=== PATIENT | male | born 1950 | race Caucasian/White ===

== ENCOUNTER 2017-03-23 11:19 | Emergency (ER) | payer MEDICARE, OTHER ==
[~2017-03-23] VITALS: Ht 175.3 cm; Wt 83.0 kg
[2017-03-23 11:26] VITALS: BP 130/74; PULSE 76; RESP 17; TEMP 97.7; O2SAT 98
[2017-03-23] MEDS ORDERED: SINE25TA PO (11:27)
--- NOTE | 2017-03-23 11:38 | PD ---
HPI Chief Complaint: Psychiatric Symptoms Time Seen by Provider: 11:30 Travel History International Travel<30 days: No Contact w/Intl Traveler<30days: No Traveled to known affect area: No History of Present Illness HPI This patient is brought in for psychiatric evaluation under police Isbell act. He is a residential patient that became combative today. He was confused and swinging at other patients and argue with staff. Patient admits to getting aggravated with people. He is very confused. He doesn't know where he is and seems confused to the situation. He denies headache or head injury or fever. Symptoms moderately severe. Duration is unknown. No alleviating factors. No known Exacerbating factors. He denies psychiatric illness PFSH Past Medical History Cardiovascular Problems: Yes Social History Alcohol Use: No Tobacco Use: No Substance Use: No Allergies-Medications (Allergen,Severity, Reaction): Coded Allergies: vancomycin (Verified Allergy, Unknown, HIVES, 03/23/17) Reported Meds & Prescriptions Reported Meds & Active Scripts Active Reported Duoneb (Ipratropium-Albuterol Neb) 0.5-2.5 Mg/3 Ml Neb 3 Ml INH Q6HR NEB Diphenhydramine HCl 25 Mg Tablet 12.5 Mg PO Q8HR PRN Flomax (Tamsulosin HCl) 0.4 Mg Cap 0.4 Mg PO BID Prednisone 20 Mg Tab 20 Mg PO BID Lasix (Furosemide) 40 Mg Tab 40 Mg PO BID Pepcid (Famotidine) 20 Mg Tab 20 Mg PO BID Vitamin D3 (Cholecalciferol) 1,000 Unit Tab 1,000 Units PO DAILY Klonopin (Clonazepam) 0.5 Mg Tab 0.5 Mg PO Q12HR PRN Fluoxetine (Fluoxetine HCl) 20 Mg Capsule 20 Mg PO DAILY Stalevo 75 (Ukyhkvjlq-[id number]) 18.75-75-200 Mg Tab 1 Tab PO Q8HR Review of Systems General / Constitutional: No: Fever Eyes: No: Visual changes HENT: No: Headaches Cardiovascular: No: Chest Pain or Discomfort Respiratory: No: Shortness of Breath Gastrointestinal: No: Abdominal Pain Genitourinary: No: Dysuria Musculoskeletal: No: Pain Skin: No Rash Neurologic: Positive: Change in Mentation, No: Weakness Psychiatric: Positive: Disorder of Thought, No: Depression Endocrine: No: Polydipsia Hematologic/Lymphatic: No: Easy Bruising Physical Exam Narrative GENERAL: Well-nourished, well-developed patient in no apparent distress. SKIN: Focused skin assessment reveals no rash and nodules. Skin is Warm and dry. HEAD: Atraumatic. Normocephalic. EYES: Pupils equal and round. No scleral icterus. No injection or drainage. ENT: No nasal bleeding or discharge. Mucous membranes pink and moist. NECK: Trachea midline. No JVD. CARDIOVASCULAR: Regular rate and rhythm. No murmur appreciated. RESPIRATORY: No accessory muscle use. Clear to auscultation. Breath sounds equal bilaterally. GASTROINTESTINAL: Abdomen soft, non-tender, nondistended. Hepatic and splenic margins not palpable. MUSCULOSKELETAL: No obvious deformities. No clubbing. No cyanosis. No edema. NEUROLOGICAL: Awake and alert. No obvious cranial nerve deficits. Motor grossly within normal limits. Normal speech. Patient is oriented to person and month and year but doesn't know the day of the week or where he is. PSYCHIATRIC: Appropriate mood and affect; insight and judgment poor Data Data Last Documented VS Vital Signs Date Time Temp Pulse Resp B/P (MAP) Pulse Ox O2 Delivery O2 Flow Rate FiO2 03/23/17 11:26 76 17 03/23/17 11:26 97.7 130/74 (92) 98 Orders Orders Complete Blood Count With Diff (03/23/17 11:30) Basic Metabolic Panel (Bmp) (03/23/17 11:30) Alcohol (Ethanol) (03/23/17 11:30) Drug Screen, Random Urine (03/23/17 11:30) Psych Screen (03/23/17 11:30) Glucose, Random (03/23/17 11:30) Urinalysis - C+S If Indicated (03/23/17 11:34) Thyroid Stimulating Hormone (03/23/17 11:38) Cath For Specimen (03/23/17 12:36) Labs Laboratory Tests Test 03/23/17 11:40 03/23/17 12:35 White Blood Count 17.8 TH/MM3 Red Blood Count 4.10 MIL/MM3 Hemoglobin 11.9 GM/DL Hematocrit 34.4 % Mean Corpuscular Volume 83.9 FL Mean Corpuscular Hemoglobin 29.0 PG Mean Corpuscular Hemoglobin Concent 34.6 % Red Cell Distribution Width 22.0 % Platelet Count 339 TH/MM3 Mean Platelet Volume 8.1 FL Neutrophils (%) (Auto) 86.3 % Lymphocytes (%) (Auto) 7.3 % Monocytes (%) (Auto) 5.1 % Eosinophils (%) (Auto) 0.8 % Basophils (%) (Auto) 0.5 % Neutrophils # (Auto) 15.3 TH/MM3 Lymphocytes # (Auto) 1.3 TH/MM3 Monocytes # (Auto) 0.9 TH/MM3 Eosinophils # (Auto) 0.2 TH/MM3 Basophils # (Auto) 0.1 TH/MM3 CBC Comment DIFF FINAL Differential Comment Blood Urea Nitrogen 34 MG/DL Creatinine 1.28 MG/DL Random Glucose 97 MG/DL Calcium Level 8.8 MG/DL Sodium Level 134 MEQ/L Potassium Level 4.0 MEQ/L Chloride Level 99 MEQ/L Carbon Dioxide Level 29.5 MEQ/L Anion Gap 6 MEQ/L Estimat Glomerular Filtration Rate 56 ML/MIN Thyroid Stimulating Hormone 3rd Gen 1.170 uIU/ML Ethyl Alcohol Level LESS THAN 3 MG/DL Urine Color YELLOW Urine Turbidity CLEAR Urine pH 7.0 Urine Specific [place] 1.011 Urine Protein NEG mg/dL Urine Glucose (UA) NEG mg/dL Urine Ketones NEG mg/dL Urine Occult Blood NEG Urine Nitrite NEG Urine Bilirubin NEG Urine Urobilinogen LESS THAN 2.0 MG/DL Urine Leukocyte Esterase NEG Urine RBC LESS THAN 1 /hpf Urine WBC 1 /hpf Microscopic Urinalysis Comment CULT NOT INDICATED Urine Opiates Screen NEG Urine Barbiturates Screen NEG Urine Amphetamines Screen NEG Urine Benzodiazepines Screen NEG Urine Cocaine Screen NEG Urine Cannabinoids Screen NEG MDM Medical Decision Making Medical Screen Exam Complete: Yes Emergency Medical Condition: Yes Medical Record Reviewed: Yes Differential Diagnosis Dementia, dementia with psychotic features, intracranial hemorrhage, electrolyte abnormality Narrative Course I have reviewed the patient's electronic medical record. I reviewed the Isbell act form filled out by police captain. Patient is never been here before I've ordered a medical workup to include IV placed CBC shows some nonspecific leukocytosis Metabolic profile shows minimal azotemia Accu-Chek 119 Urinalysis is clean Drug screen is negative Alcohol is negative TSH is normal His has shown up and I obtain further information. He has history of Parkinson's and is often confused. He's had multiple recent brain imaging as he was recently in the hospital, last 2 weeks ago She does not feel he needs further brain imaging and I agree and have canceled brain Ct He has no headache or head injury or neurologic focal complaint At this point he is alert and polite and pleasant and cooperative He is awaiting psychiatric evaluation He is is medically stable as can be made He has some leukocytosis but does not look septic or toxic. He has no respiratory symptoms. He has no tachycardia nor hypotension or fever. Likely he will be discharged back to the residential but will get psychiatric evaluation first Florentin Harrell MD Mar 23, 2017 11:37
[2017-03-23 12:11] LABS: AUTOMATED NEUTROPHIL # 15.3 TH/MM3 (1.8-7.7); BASOPHIL # 0.1 TH/MM3 (0-0.2); BASOPHIL % 0.5 % (0.0-2.0); EOSINOPHIL # 0.2 TH/MM3 (0-0.4); EOSINOPHIL % 0.8 % (0.0-4.0); HEMATOCRIT 34.4 % (39.0-51.0); HEMO FLAGS DIFF FINAL; LYMPH % 7.3 % (9.0-44.0); LYMPHOCYTE # 1.3 TH/MM3 (1.0-4.8); MEAN CELL VOLUME 83.9 FL (80.0-100.0); MEAN CORPUSCULAR HGB CONC 34.6 % (32.0-36.0); MONO % 5.1 % (0.0-8.0); NEUT % 86.3 % (16.0-70.0); PLATELET COUNT 339 TH/MM3 (150-450); WHITE BLOOD COUNT 17.8 TH/MM3 (4.0-11.0)
[2017-03-23 12:21] LABS: ANION GAP 6 MEQ/L (5-15); BICARBONATE 29.5 MEQ/L (21.0-32.0); BLOOD UREA NITROGEN 34 MG/DL (7-18); CHLORIDE 99 MEQ/L (98-107); GLOMERULAR FILTRATION RATE 56 ML/MIN (>89); SODIUM (NA) 134 MEQ/L (136-145)
[2017-03-23 12:27] LABS: ALCOHOL LESS THAN 3 MG/DL (0-5)
[2017-03-23] MEDS ORDERED: FLUO20CA12 PO (12:54)
[2017-03-23] MEDS ORDERED: DIPH25TA5 PO (12:54)
[2017-03-23] MEDS ORDERED: FURO1TAB60 PO (12:54)
[2017-03-23] MEDS ORDERED: PRED20 PO (12:54)
[2017-03-23] MEDS ORDERED: STALTAB5 PO (12:54)
[2017-03-23] MEDS ORDERED: FAMO1TAB37 PO (12:54)
[2017-03-23] MEDS ORDERED: CLON.5 PO (12:54)
[2017-03-23] MEDS ORDERED: TAMS5CAP PO (12:54)
[2017-03-23] MEDS ORDERED: VITA100064 PO (12:54)
[2017-03-23] MEDS ORDERED: IPRASOL INH (12:54)
[2017-03-23 12:58] LABS: BLOOD, URINE NEG (NEG); COMMENT (UR) CULT NOT INDICATED; CULTURE IF INDICATED CULT NOT INDICATED; GLUCOSE,URINE NEG (NEG); KETONE, URINE NEG (NEG); NITRITE,URINE NEG (NEG); URINE COLOR YELLOW (YELLW/STRAW)
[2017-03-23 14:50] VITALS: BP 124/76; TEMP 97.9
[2017-03-23] MEDS ORDERED: clonazePAM 0.5 MG TAB PO PRN (18:00)
[2017-03-23] MEDS ORDERED: FUROSEMIDE 40 MG TAB PO SCH (18:00)
--- NOTE | 2017-03-23 18:04 | PD ---
Data Data Last Documented VS Vital Signs Date Time Temp Pulse Resp B/P (MAP) Pulse Ox O2 Delivery O2 Flow Rate FiO2 03/23/17 18:14 97.5 96 18 122/68 (86) 99 Room Air Orders Orders Complete Blood Count With Diff (03/23/17 11:30) Basic Metabolic Panel (Bmp) (03/23/17 11:30) Alcohol (Ethanol) (03/23/17 11:30) Drug Screen, Random Urine (03/23/17 11:30) Psych Screen (03/23/17 11:30) Glucose, Random (03/23/17 11:30) Urinalysis - C+S If Indicated (03/23/17 11:34) Thyroid Stimulating Hormone (03/23/17 11:38) Cath For Specimen (03/23/17 12:36) Diet Regular Basic (03/23/17 Dinner) Clonazepam (Klonopin) (03/23/17 18:00) Furosemide (Lasix) (03/23/17 18:00) Tamsulosin (Flomax) (03/23/17 21:00) Carbidopa-Levodopa 25-100 Mg (Sinemet 25 (03/23/17 22:00) Labs Laboratory Tests Test 03/23/17 11:40 03/23/17 12:35 White Blood Count 17.8 TH/MM3 Red Blood Count 4.10 MIL/MM3 Hemoglobin 11.9 GM/DL Hematocrit 34.4 % Mean Corpuscular Volume 83.9 FL Mean Corpuscular Hemoglobin 29.0 PG Mean Corpuscular Hemoglobin Concent 34.6 % Red Cell Distribution Width 22.0 % Platelet Count 339 TH/MM3 Mean Platelet Volume 8.1 FL Neutrophils (%) (Auto) 86.3 % Lymphocytes (%) (Auto) 7.3 % Monocytes (%) (Auto) 5.1 % Eosinophils (%) (Auto) 0.8 % Basophils (%) (Auto) 0.5 % Neutrophils # (Auto) 15.3 TH/MM3 Lymphocytes # (Auto) 1.3 TH/MM3 Monocytes # (Auto) 0.9 TH/MM3 Eosinophils # (Auto) 0.2 TH/MM3 Basophils # (Auto) 0.1 TH/MM3 CBC Comment DIFF FINAL Differential Comment Blood Urea Nitrogen 34 MG/DL Creatinine 1.28 MG/DL Random Glucose 97 MG/DL Calcium Level 8.8 MG/DL Sodium Level 134 MEQ/L Potassium Level 4.0 MEQ/L Chloride Level 99 MEQ/L Carbon Dioxide Level 29.5 MEQ/L Anion Gap 6 MEQ/L Estimat Glomerular Filtration Rate 56 ML/MIN Thyroid Stimulating Hormone 3rd Gen 1.170 uIU/ML Ethyl Alcohol Level LESS THAN 3 MG/DL Urine Color YELLOW Urine Turbidity CLEAR Urine pH 7.0 Urine Specific [place] 1.011 Urine Protein NEG mg/dL Urine Glucose (UA) NEG mg/dL Urine Ketones NEG mg/dL Urine Occult Blood NEG Urine Nitrite NEG Urine Bilirubin NEG Urine Urobilinogen LESS THAN 2.0 MG/DL Urine Leukocyte Esterase NEG Urine RBC LESS THAN 1 /hpf Urine WBC 1 /hpf Microscopic Urinalysis Comment CULT NOT INDICATED Urine Opiates Screen NEG Urine Barbiturates Screen NEG Urine Amphetamines Screen NEG Urine Benzodiazepines Screen NEG Urine Cocaine Screen NEG Urine Cannabinoids Screen NEG MDM Supervised Visit with RICKI: No Narrative Course I was asked by the psychiatric nurse to order the patient's home medications. The patient is on Stalevo for Parkinson's disease. I called our pharmacist and we do not have this on formulary. The patient will be provided his carbidopa/ levodopa. Brian Falcon MD Mar 23, 2017 18:04
[2017-03-23 18:14] VITALS: BP 122/68; PULSE 76; PULSE 96; RESP 18; TEMP 97.5; O2SAT 99
--- NOTE | 2017-03-23 19:32 | PD ---
History of Present Illness Chief Complaint: Psychiatric Symptoms Time Seen by Provider: 18:15 Travel History International Travel<30 Days: No Contact w/Intl Traveler<30days: No Known affected area: No Legal Status Legal Status: Isbell Act Isbell Act Signed By: Stephane Barrios Isbell Act Comment: Signed by [facility] Officer Hi Calloway #[id number]. History of Present Illness: History of Present Illness HPI This patient is a 67 year old male with no previous psychiatric history and history of Parkinson's disease who is brought in for psychiatric evaluation under police Isbell act. The Isbell act reads "Possible Dementia, post M.I. Threatening to smash glass doors; Hitting other patients; Though he was in a time share presentation while at alf." Patient admits to getting aggravated with people. Patient has been monitored here and has not been agitated. No previous encounter with [facility] psychiatry. Patient is alert and oriented to person, partial to time, knows it is March 2017, aware he is in the hospital. He admits that he is frustrated at times. He does not present any suicidal or homicidal ideation at this time. Currently not experiencing any delusions or hallucinations. He does state that he now knows he has hallucinations but that it is very difficult because t" they seem so real". PFSH Past Medical History Cardiac Catheterization: Yes Cardiovascular Problems: Yes Diminished Hearing: No Neurologic: Yes Parkinson's Disease: Yes Myocardial Infarction: Yes Tetanus Vaccination: < 5 Years Influenza Vaccination: Yes Psychiatric History Psychiatric History Hx Psychiatric Treatment: He denies any routine psychiatric treatment. History of Inpatient Treatment: No Guns or firearms in home: No Social History male, retired ic engineer. Recently placed in nursing facility. Hx Alcohol Use: No Hx Tobacco Use: No Hx Substance Use: No (Pt denies. ) Hx of Substance Use Treatment: No Allergies-Medications (Allergen,Severity, Reaction): Coded Allergies: vancomycin (Verified Allergy, Unknown, HIVES, 03/23/17) Reported Meds & Prescriptions Reported Meds & Active Scripts Active Reported Duoneb (Ipratropium-Albuterol Neb) 0.5-2.5 Mg/3 Ml Neb 3 Ml INH Q6HR NEB Diphenhydramine HCl 25 Mg Tablet 12.5 Mg PO Q8HR PRN Flomax (Tamsulosin HCl) 0.4 Mg Cap 0.4 Mg PO BID Prednisone 20 Mg Tab 20 Mg PO BID Lasix (Furosemide) 40 Mg Tab 40 Mg PO BID Pepcid (Famotidine) 20 Mg Tab 20 Mg PO BID Vitamin D3 (Cholecalciferol) 1,000 Unit Tab 1,000 Units PO DAILY Klonopin (Clonazepam) 0.5 Mg Tab 0.5 Mg PO Q12HR PRN Fluoxetine (Fluoxetine HCl) 20 Mg Capsule 20 Mg PO DAILY Stalevo 75 (Wnufoqbxm-Guzrjnsr-Ijjlpeuwir) 18.75-75-200 Mg Tab 1 Tab PO Q8HR Review of Systems Constitutional: COMPLAINS OF: Change in appetite Neurologic: COMPLAINS OF: Abnormal gait Psychiatric: COMPLAINS OF: Depression Mental Status Examination Appearance: Appropriate (In hospital gown) Consciousness: Alert Orientation: Person, Place, Date/Time (partial) Speech: Unremarkable Language: Adequate Fund of Knowledge: Adequate Attention and Concentration: Adequate Mood: Sad Affect: Appropriate Thought Process & Associations: Intact, Logical, Goal directed Thought Content: Appropriate Hallucination Type: Visual Delusion Type: None Suicidal Ideation: No Suicidal Plan: No Suicidal Intention: No Homicidal Ideation: No Homicidal Plan: No Homicidal Intention: No Insight: Adequate Judgment: Adequate MDM Medical Decision Making Medical Record Reviewed: Yes Assessment/Plan This patient is a 67 year old male with no previous psychiatric history and history of Parkinson's disease who is brought in for psychiatric evaluation under police Isbell act. He is a alf patient that became combative today. He was confused and swinging at other patients and arguing with staff. Patient admits to getting aggravated with people. Patient exhibits hallucinations and delusions associated with Parkinson's disease which unfortunately are common. His recent use of of anti-PD medications also tends to increase the risk of psychosis. He may benefit from low dose of Zyprexa but this is deferred to treatment provider at his SNF. The patient has been working with a neuro psychiatrist in adjusting his current medications. Patient does not meet Isbell act criteria. No evidence of unstable mental illness as defined under the Isbell act. Lift Isbell act. Patient to return to SNF. Orders Orders Complete Blood Count With Diff (03/23/17 11:30) Basic Metabolic Panel (Bmp) (03/23/17 11:30) Alcohol (Ethanol) (03/23/17 11:30) Drug Screen, Random Urine (03/23/17 11:30) Psych Screen (03/23/17 11:30) Glucose, Random (03/23/17 11:30) Urinalysis - C+S If Indicated (03/23/17 11:34) Thyroid Stimulating Hormone (03/23/17 11:38) Cath For Specimen (03/23/17 12:36) Diet Regular Basic (03/23/17 Dinner) Clonazepam (Klonopin) (03/23/17 18:00) Furosemide (Lasix) (03/23/17 18:00) Tamsulosin (Flomax) (03/23/17 21:00) Carbidopa-Levodopa 25-100 Mg (Sinemet 25 (03/23/17 22:00) Results Vital Signs Date Time Temp Pulse Resp B/P (MAP) Pulse Ox O2 Delivery O2 Flow Rate FiO2 03/23/17 18:14 97.5 76 18 122/68 (86) 99 Room Air 03/23/17 14:50 97.9 78 16 124/76 (92) 99 03/23/17 11:26 76 17 03/23/17 11:26 97.7 76 17 130/74 (92) 98 Laboratory Tests Test 03/23/17 11:40 03/23/17 12:35 White Blood Count 17.8 Red Blood Count 4.10 Hemoglobin 11.9 Hematocrit 34.4 Mean Corpuscular Volume 83.9 Mean Corpuscular Hemoglobin 29.0 Mean Corpuscular Hemoglobin Concent 34.6 Red Cell Distribution Width 22.0 Platelet Count 339 Mean Platelet Volume 8.1 Neutrophils (%) (Auto) 86.3 Lymphocytes (%) (Auto) 7.3 Monocytes (%) (Auto) 5.1 Eosinophils (%) (Auto) 0.8 Basophils (%) (Auto) 0.5 Neutrophils # (Auto) 15.3 Lymphocytes # (Auto) 1.3 Monocytes # (Auto) 0.9 Eosinophils # (Auto) 0.2 Basophils # (Auto) 0.1 CBC Comment DIFF FINAL Differential Comment Blood Urea Nitrogen 34 Creatinine 1.28 Random Glucose 97 Calcium Level 8.8 Sodium Level 134 Potassium Level 4.0 Chloride Level 99 Carbon Dioxide Level 29.5 Anion Gap 6 Estimat Glomerular Filtration Rate 56 Thyroid Stimulating Hormone 3rd Gen 1.170 Ethyl Alcohol Level LESS THAN 3 Urine Color YELLOW Urine Turbidity CLEAR Urine pH 7.0 Urine Specific [place] 1.011 Urine Protein NEG Urine Glucose (UA) NEG Urine Ketones NEG Urine Occult Blood NEG Urine Nitrite NEG Urine Bilirubin NEG Urine Urobilinogen LESS THAN 2.0 Urine Leukocyte Esterase NEG Urine RBC LESS THAN 1 Urine WBC 1 Microscopic Urinalysis Comment CULT NOT INDICATED Urine Opiates Screen NEG Urine Barbiturates Screen NEG Urine Amphetamines Screen NEG Urine Benzodiazepines Screen NEG Urine Cocaine Screen NEG Urine Cannabinoids Screen NEG Diagnosis Primary Impression: Adjustment disorder 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
--- NOTE | 2017-03-23 20:34 | PD ---
History of Present Illness Chief Complaint: Psychiatric Symptoms Time Seen by Provider: 18:15 Travel History International Travel<30 Days: No Contact w/Intl Traveler<30days: No Known affected area: No Legal Status Legal Status: Isbell Act Isbell Act Signed By: Stephane Barrios Isbell Act Comment: [facility] [place] Calloway #[id number]. History of Present Illness: History of Present Illness HPI This patient is a 67 year old male with no previous psychiatry brought in for psychiatric evaluation under police Isbell act. He is a assisted patient that became combative today. He was confused and swinging at other patients and argue with staff. Patient admits to getting aggravated with people. He is very confused. He doesn't know where he is and seems confused to the situation. He denies headache or head injury or fever. Symptoms moderately severe. Duration is unknown. No alleviating factors. No known Exacerbating factors. He denies psychiatric illness PFSH Past Medical History Cardiac Catheterization: Yes Cardiovascular Problems: Yes Diminished Hearing: No Neurologic: Yes Parkinson's Disease: Yes Myocardial Infarction: Yes Tetanus Vaccination: < 5 Years Influenza Vaccination: Yes Psychiatric History Psychiatric History Hx Psychiatric Treatment: Per pt, he was seen over the years for routine psychiatric evaluations as needed for work. He denies any routine psychiatric treatment. Social History Hx Alcohol Use: No Hx Tobacco Use: No Hx Substance Use: No (Pt denies. ) Hx of Substance Use Treatment: No Allergies-Medications (Allergen,Severity, Reaction): Coded Allergies: vancomycin (Verified Allergy, Unknown, HIVES, 03/23/17) Reported Meds & Prescriptions Reported Meds & Active Scripts Active Reported Duoneb (Ipratropium-Albuterol Neb) 0.5-2.5 Mg/3 Ml Neb 3 Ml INH Q6HR NEB Diphenhydramine HCl 25 Mg Tablet 12.5 Mg PO Q8HR PRN Flomax (Tamsulosin HCl) 0.4 Mg Cap 0.4 Mg PO BID Prednisone 20 Mg Tab 20 Mg PO BID Lasix (Furosemide) 40 Mg Tab 40 Mg PO BID Pepcid (Famotidine) 20 Mg Tab 20 Mg PO BID Vitamin D3 (Cholecalciferol) 1,000 Unit Tab 1,000 Units PO DAILY Klonopin (Clonazepam) 0.5 Mg Tab 0.5 Mg PO Q12HR PRN Fluoxetine (Fluoxetine HCl) 20 Mg Capsule 20 Mg PO DAILY Stalevo 75 (Izosfgcsw-Svggumjy-Chijuzjsgy) 18.75-75-200 Mg Tab 1 Tab PO Q8HR MDM Orders Orders Complete Blood Count With Diff (03/23/17 11:30) Basic Metabolic Panel (Bmp) (03/23/17 11:30) Alcohol (Ethanol) (03/23/17 11:30) Drug Screen, Random Urine (03/23/17 11:30) Psych Screen (03/23/17 11:30) Glucose, Random (03/23/17 11:30) Urinalysis - C+S If Indicated (03/23/17 11:34) Thyroid Stimulating Hormone (03/23/17 11:38) Cath For Specimen (03/23/17 12:36) Diet Regular Basic (03/23/17 Dinner) Clonazepam (Klonopin) (03/23/17 18:00) Furosemide (Lasix) (03/23/17 18:00) Tamsulosin (Flomax) (03/23/17 21:00) Carbidopa-Levodopa 25-100 Mg (Sinemet 25 (03/23/17 22:00) Results Vital Signs Date Time Temp Pulse Resp B/P (MAP) Pulse Ox O2 Delivery O2 Flow Rate FiO2 03/23/17 18:14 97.5 76 18 122/68 (86) 99 Room Air 03/23/17 14:50 97.9 78 16 124/76 (92) 99 03/23/17 11:26 76 17 03/23/17 11:26 97.7 76 17 130/74 (92) 98 Laboratory Tests Test 03/23/17 11:40 03/23/17 12:35 White Blood Count 17.8 Red Blood Count 4.10 Hemoglobin 11.9 Hematocrit 34.4 Mean Corpuscular Volume 83.9 Mean Corpuscular Hemoglobin 29.0 Mean Corpuscular Hemoglobin Concent 34.6 Red Cell Distribution Width 22.0 Platelet Count 339 Mean Platelet Volume 8.1 Neutrophils (%) (Auto) 86.3 Lymphocytes (%) (Auto) 7.3 Monocytes (%) (Auto) 5.1 Eosinophils (%) (Auto) 0.8 Basophils (%) (Auto) 0.5 Neutrophils # (Auto) 15.3 Lymphocytes # (Auto) 1.3 Monocytes # (Auto) 0.9 Eosinophils # (Auto) 0.2 Basophils # (Auto) 0.1 CBC Comment DIFF FINAL Differential Comment Blood Urea Nitrogen 34 Creatinine 1.28 Random Glucose 97 Calcium Level 8.8 Sodium Level 134 Potassium Level 4.0 Chloride Level 99 Carbon Dioxide Level 29.5 Anion Gap 6 Estimat Glomerular Filtration Rate 56 Thyroid Stimulating Hormone 3rd Gen 1.170 Ethyl Alcohol Level LESS THAN 3 Urine Color YELLOW Urine Turbidity CLEAR Urine pH 7.0 Urine Specific [place] 1.011 Urine Protein NEG Urine Glucose (UA) NEG Urine Ketones NEG Urine Occult Blood NEG Urine Nitrite NEG Urine Bilirubin NEG Urine Urobilinogen LESS THAN 2.0 Urine Leukocyte Esterase NEG Urine RBC LESS THAN 1 Urine WBC 1 Microscopic Urinalysis Comment CULT NOT INDICATED Urine Opiates Screen NEG Urine Barbiturates Screen NEG Urine Amphetamines Screen NEG Urine Benzodiazepines Screen NEG Urine Cocaine Screen NEG Urine Cannabinoids Screen NEG Ginette Almendarez [facility] Mar 23, 2017 20:34
[2017-03-23] MEDS ORDERED: TAMSULOSIN HCL 0.4 MG CAP PO SCH (21:00)
[2017-03-23] MEDS ORDERED: CARBIDOPA/LEVODOPA 25 MG/100 MG TAB PO SCH (22:00)
== END 2017-03-23 20:24 ==
LOC: NEPD 11:19 → NEPJ 20:24
DX: R41.0 Disorientation, unspecified (principal); F43.20 Adjustment disorder, unspecified; F29 Unspecified psychosis not due to a substance or known physiological condition; G20 Parkinson's disease; I25.2 Old myocardial infarction; D72.829 Elevated white blood cell count, unspecified; Z79.899 Other long term (current) drug therapy
CPT/HCPCS: 80048; 80307; 81001; 84443; 85025; 99284